=== PATIENT | female | born 1995 | race Two or more races ===

== ENCOUNTER 2017-09-28 19:38 | Emergency (ER) | payer OTHER ==
[~2017-09-28] VITALS: Ht 154.9 cm; Wt 98.4 kg
[2017-09-28 19:49] VITALS: BP 125/76
== END 2017-09-28 20:28 | disposition home or self-care (01) ==
LOC: ED 20:20
DX: S70.362A Insect bite (nonvenomous), left thigh, initial encounter (principal); W57.XXXA Bitten or stung by nonvenomous insect and other nonvenomous arthropods, initial encounter; Y93.89 Activity, other specified; Y92.009 Unspecified place in unspecified non-institutional (private) residence as the place of occurrence of the external cause; Y99.8 Other external cause status
CPT/HCPCS: 99283

== ENCOUNTER 2018-12-27 05:17 | Outpatient (CLI) | payer BC ==
[~2018-12-27] VITALS: Ht 154.9 cm; Wt 118.0 kg
[2018-12-27 05:48] VITALS: BP 124/77
== END 2018-12-27 06:48 | disposition home or self-care (01) ==
LOC: LDOP 05:17
PROVIDERS: ATTEND Obstetrics & Gynecology
DX: O26.893 Other specified pregnancy related conditions, third trimester (principal); R10.9 Unspecified abdominal pain; Z3A.40 40 weeks gestation of pregnancy
CPT/HCPCS: 59025; 99211; G0463

== ENCOUNTER 2018-12-27 12:55 | Inpatient (IN) | payer BC ==
[~2018-12-27] VITALS: Ht 154.9 cm; Wt 119.1 kg
[2018-12-27 13:14] VITALS: BP 132/78
[2018-12-27] MEDS: LACTATED RINGERS 1,000 ML IV SCH ×3 (14:00→22:00)
[2018-12-27] MEDS: D5%-LACTATED RINGERS 1,000 ML IV SCH ×2 (14:26→22:26)
[2018-12-27] MEDS ORDERED: OXYTOCIN 30U/ 0.9% NaCL 500ML 500 ML IV ONE (14:26)
[2018-12-27] MEDS ORDERED: ONDANSETRON 2MG/ML, 2ML IVPush PRN (14:30)
[2018-12-27] MEDS ORDERED: TERBUTALINE 1 MG/ML, 1ML SQ PRN (14:30)
[2018-12-27] MEDS ORDERED: FENTANYL PF 100 MCG/2ML IV PRN (14:30)
[2018-12-27] MEDS ORDERED: TERBUTALINE 1 MG/ML, 1ML IVPush PRN (14:30)
[2018-12-27] MEDS ORDERED: CALCIUM CARBONATE 500 MG TAB.CHEW PO PRN (14:30)
[2018-12-27 15:21] LABS: BASOPHILS # (AUTO) 0.05 x10^3/uL (0-0.1); BASOPHILS % (AUTO) 0 % (0-1); EOSINOPHILS % (AUTO) 1 % (1-7); LYMPHOCYTES # (AUTO) 2.52 x10^3/uL (1-3.4); LYMPHOCYTES % (AUTO) 17 % (22-44); MD NO; MEAN CORPUSCULAR HEMOGLOBIN 30.2 pg (27.0-34.8); MEAN CORPUSCULAR HGB CONC 32.6 g/dL (32.4-35.8); MEAN CORPUSCULAR VOLUME 92.6 fL (80-100); MEAN PLATELET VOLUME 8.7 fL (7.4-10.4); MONOCYTES # (AUTO) 0.78 x10^3/uL (0.2-0.8); MONOCYTES % (AUTO) 5 % (2-9); NEUTROPHILS % (AUTO) 77 % (42-75); PLATELET COUNT 304 x10^3/uL (130-400); RED BLOOD COUNT 4.34 x10^6/uL (3.82-5.3); RED CELL DISTRIBUTION WIDTH 13.3 % (9.6-15.2)
[2018-12-27] MEDS ORDERED: NEWBORN KIT ONE (16:07)
[2018-12-27] MEDS ORDERED: OXYTOCIN 30U/ 0.9% NaCL 500ML 500 ML ONE (16:08)
[2018-12-27] MEDS ORDERED: MISOPROSTOL 200 MCG TABLET ONE (16:08)
[2018-12-27] MEDS ORDERED: LIDOCAINE 1%, 20ML ONE (16:08)
[2018-12-27] MEDS ORDERED: FENTANYL PF 100 MCG/2ML ONE ×3 (17:02→20:47)
[2018-12-27] MEDS: FENTANYL PF 100 MCG/2ML IVPush PRN ×3 (17:06→20:49)
[2018-12-27] MEDS ORDERED: FENTANYL/BUPIV./NS/PF 250 ML EPIDCONT SCH (20:28)
[2018-12-27] MEDS ORDERED: EPHEDRINE 50 MG/ML, 1ML IVPush PRN (20:30)
[2018-12-27] MEDS ORDERED: LACTATED RINGERS 1,000 ML IVBOLUS PRN (20:30)
[2018-12-27] MEDS ORDERED: BUPIVACAINE 0.25% ONE ×2 (20:48→21:24)
[2018-12-27] MEDS ORDERED: FENTANYL/BUPIV./NS/PF 250 ML EPIDCONT ONE (20:51)
[2018-12-27] MEDS ORDERED: FENTANYL PF 500 MCG, BUPIVACAINE/PF 0.5%, 30ML 62.5 ML in SODIUM CHLORIDE 0.9% 177.5 ML EPIDCONT SCH (21:00)
[2018-12-28] MEDS ORDERED: MISOPROSTOL 200 MCG TABLET ONE (01:01)
[2018-12-28] MEDS ORDERED: METHYLERGONOVINE 0.2 MG/ML IM ONE (01:03)
[2018-12-28] MEDS ORDERED: OXYTOCIN 30U/ 0.9% NaCL 500ML 500 ML ONE (01:27)
[2018-12-28] MEDS ORDERED: CARBOPROST TROMETHAMINE 250 MCG/ML, 1ML IM PRN (01:30)
[2018-12-28] MEDS ORDERED: MISOPROSTOL 200 MCG TABLET PR PRN (01:30)
[2018-12-28] MEDS ORDERED: OXYTOCIN 10 UNITS/ML, 1ML IM PRN (01:30)
[2018-12-28] MEDS ORDERED: ACETAMINOPHEN 325 MG TABLET PO PRN (01:30)
[2018-12-28] MEDS ORDERED: METHYLERGONOVINE 0.2 MG/ML IM PRN (01:30)
[2018-12-28] MEDS ORDERED: HYDROcodone/APAP 5/325 TABLET PO PRN (01:30)
[2018-12-28] MEDS ORDERED: ONDANSETRON 2MG/ML, 2ML IV PRN (01:30)
[2018-12-28] MEDS ORDERED: SIMETHICONE 80 MG CHEW TAB PO PRN (01:30)
[2018-12-28] MEDS: OXYTOCIN 30U/ 0.9% NaCL 500ML 500 ML IV SCH ×3 (02:00→21:29)
[2018-12-28] MEDS ORDERED: IBUPROFEN 600 MG TABLET ONE (02:32)
[2018-12-28] MEDS: IBUPROFEN 600 MG TABLET PO PRN ×3 (02:33→23:52)
[2018-12-28 03:20] VITALS: BP 128/79
[2018-12-28] MEDS: LACTATED RINGERS 1,000 ML IV SCH ×6 (04:28→22:26)
[2018-12-28] MEDS: D5%-LACTATED RINGERS 1,000 ML IV SCH ×3 (06:26→22:26)
[2018-12-28 07:31] VITALS: BP 118/73
[2018-12-28] MEDS: PRENATAL VIT/IRON/FA 1 EACH TABLET PO SCH (09:00)
[2018-12-28 09:01] LABS: BASOPHILS % (AUTO) 2 % (0-1); EOSINOPHILS # (AUTO) 0.07 x10^3/uL (0-0.4); EOSINOPHILS % (AUTO) 0 % (1-7); LYMPHOCYTES # (AUTO) 2.15 x10^3/uL (1-3.4); LYMPHOCYTES % (AUTO) 13 % (22-44); MD NO; MEAN CORPUSCULAR HEMOGLOBIN 30.3 pg (27.0-34.8); MEAN CORPUSCULAR HGB CONC 33.6 g/dL (32.4-35.8); MEAN CORPUSCULAR VOLUME 90.1 fL (80-100); MEAN PLATELET VOLUME 8.3 fL (7.4-10.4); MONOCYTES # (AUTO) 0.97 x10^3/uL (0.2-0.8); MONOCYTES % (AUTO) 6 % (2-9); NEUTROPHILS # (AUTO) 13.76 x10^3/uL (1.8-6.8); NEUTROPHILS % (AUTO) 80 % (42-75); PLATELET COUNT 263 x10^3/uL (130-400); RED BLOOD COUNT 3.87 x10^6/uL (3.82-5.3); RED CELL DISTRIBUTION WIDTH 13.1 % (9.6-15.2)
[2018-12-28 12:30] VITALS: BP 127/80
[2018-12-28 16:00] VITALS: BP 127/82
[2018-12-28 19:15] VITALS: BP 110/75
[2018-12-28] MEDS: DOCUSATE 100 MG CAPSULE PO PRN (20:54)
[2018-12-28 23:50] VITALS: BP 124/81
[2018-12-28] MEDS: HYDROcodone/APAP 5/325 TABLET PO PRN (23:52)
[2018-12-29] MEDS: LACTATED RINGERS 1,000 ML IV SCH ×2 (04:28→06:26)
[2018-12-29] MEDS: D5%-LACTATED RINGERS 1,000 ML IV SCH (06:26)
[2018-12-29] MEDS: OXYTOCIN 30U/ 0.9% NaCL 500ML 500 ML IV SCH (07:29)
[2018-12-29 07:36] VITALS: BP 103/67
[2018-12-29] MEDS: PRENATAL VIT/IRON/FA 1 EACH TABLET PO SCH (07:58)
[2018-12-29] MEDS: IBUPROFEN 600 MG TABLET PO PRN (07:58)
[2018-12-29] MEDS: HYDROcodone/APAP 5/325 TABLET PO PRN (07:58)
[2018-12-29] MEDS: DOCUSATE 100 MG CAPSULE PO PRN (07:58)
[2018-12-29] MEDS ORDERED: IBUP-1222 PO (12:38)
[2018-12-29] MEDS ORDERED: HYDR-3240 PO (12:41)
[2018-12-29] MEDS ORDERED: SENN-92 PO (12:43)
== END 2018-12-29 14:43 | disposition home or self-care (01) | DRG 807 ==
LOC: LDOP 12:55 → LDIP 14:39 → 2NW 12-28 03:00
PROVIDERS: ADMIT Obstetrics & Gynecology; ATTEND Obstetrics & Gynecology
PROC: 10E0XZZ Delivery of Products of Conception, External Approach (ICD-10-PCS; principal; 2018-12-28)
PROC: 0KQM0ZZ Repair Perineum Muscle, Open Approach (ICD-10-PCS; 2018-12-28)
PROC: 10907ZC Drainage of Amniotic Fluid, Therapeutic from Products of Conception, Via Natural or Artificial Opening (ICD-10-PCS; 2018-12-28)
PROC: 3E0R3BZ Introduction of Anesthetic Agent into Spinal Canal, Percutaneous Approach (ICD-10-PCS; 2018-12-28)
PROC: 00HU33Z Insertion of Infusion Device into Spinal Canal, Percutaneous Approach (ICD-10-PCS; 2018-12-28)
DX: O99.214 Obesity complicating childbirth (principal); Z37.0 Single live birth; Z3A.40 40 weeks gestation of pregnancy; O70.1 Second degree perineal laceration during delivery
CPT/HCPCS: 36415; 85025; 86850; 86900; G0378; J3010; J2590; J7120